=== PATIENT | female | born 1945 | race Caucasian/White ===

== ENCOUNTER 2016-08-28 05:41 | Inpatient (IN) | payer BC ==
[~2016-08-28] VITALS: Ht 152.4 cm; Wt 77.6 kg
[~2016-08-28 05:41] MED LIST: ATEN100T44 PO; HYG25 PO; LEVO50TA77 PO; LISI40TA4 PO; LOSA50TA3 PO; PRAV20TA PO; RIVA10TA PO
[2016-08-28] MEDS ORDERED: TRANEXAMIC ACID 650 MG TABLET PO ONE (06:00)
[2016-08-28] MEDS ORDERED: CELECOXIB 200 MG CAPSULE PO ONE (06:00)
[2016-08-28] MEDS ORDERED: GABAPENTIN 300 MG CAPSULE PO ONE (06:00)
[2016-08-28] MEDS ORDERED: ACETAMINOPHEN 500 MG TABLET PO ONE (06:00)
[2016-08-28] MEDS ORDERED: oxyCODONE HCL 10 MG TAB.ER.12H PO ONE ×2 (06:00→06:04)
[2016-08-28] MEDS ORDERED: CELECOXIB 200 MG CAPSULE ONE (06:04)
[2016-08-28] MEDS ORDERED: ACETAMINOPHEN 500 MG TABLET ONE (06:04)
[2016-08-28] MEDS ORDERED: GABAPENTIN 300 MG CAPSULE ONE (06:05)
[2016-08-28] MEDS ORDERED: TRANEXAMIC ACID 650 MG TABLET ONE (06:05)
[2016-08-28] MEDS ORDERED: ASPI-1063 PO (06:30)
[2016-08-28] MEDS ORDERED: METOPROLOL TARTRATE 5 MG/5 ML VIAL IVP ONE (06:56)
[2016-08-28] MEDS ORDERED: VANCOMYCIN HCL 1000 MG/VIAL IV ONE (06:56)
[2016-08-28] MEDS ORDERED: fentaNYL CITRATE/PF 100 MCG/2 ML AMP IVP ONE (06:56)
[2016-08-28] MEDS ORDERED: LR 1,000 ML IV.SOLN IV ONE (06:56)
[2016-08-28] MEDS ORDERED: METOCLOPRAMIDE HCL 10 MG/2 ML VIAL IVP ONE (06:56)
[2016-08-28] MEDS ORDERED: DEXAMETHASONE SOD PHOSPHATE 4 MG/ML VIAL IVP ONE (06:56)
[2016-08-28] MEDS ORDERED: TRANEXAMIC ACID 1,000 MG/10 ML VIAL IV ONE (06:56)
[2016-08-28] MEDS ORDERED: MIDAZOLAM HCL 5 MG/5 ML VIAL IVP ONE (06:56)
[2016-08-28] MEDS ORDERED: MORPHINE SULFATE 10MG/10ML PF AMP EP ONE (06:56)
[2016-08-28] MEDS ORDERED: ROPIVACAINE 0.2% (NAROPIN) PF SOLUTION 100 ML BOTTLE EP ONE (06:56)
[2016-08-28] MEDS ORDERED: NS 100 ML BAG IV ONE (06:56)
[2016-08-28] MEDS ORDERED: ROPIVACAINE HCL/PF 5 MG/ML 0.5% 30 ML VIAL INJ ONE (06:56)
[2016-08-28] MEDS ORDERED: KETOROLAC TROMETHAMINE 30 MG VIAL IVP ONE (06:56)
[2016-08-28] MEDS ORDERED: EPINEPHrine 1 MG/ML AMP IVP ONE (06:56)
[2016-08-28] MEDS ORDERED: SEVOFLURANE 15 MIN GAS INH ONE (06:56)
[2016-08-28] MEDS ORDERED: PROPOFOL 200MG/ 20ML VIAL (DIPRIVAN) IV ONE (06:56)
[2016-08-28] MEDS ORDERED: POLYMYXIN 500,000/BACIT.10,000 UNITS in NS IRR 1 L IR ONE (06:58)
[2016-08-28] MEDS ORDERED: KETOROLAC TROMETHAMINE 30 MG VIAL ONE (06:59)
[2016-08-28] MEDS ORDERED: CEFAZOLIN SOD 2 GM in D5W 50 ML IV ONE (07:00)
[2016-08-28] MEDS ORDERED: LR 1,000 ML IV ONE (08:24)
[2016-08-28] MEDS ORDERED: ONDANSETRON HCL 4 MG/2 ML VIAL IVP PRN ×3 (08:30→09:15)
[2016-08-28] MEDS ORDERED: DIPHENHYDRAMINE INJ 50 MG/ML VIAL IVP PRN (08:30)
[2016-08-28] MEDS ORDERED: KETOROLAC TROMETHAMINE 30 MG VIAL IM PRN (08:30)
[2016-08-28] MEDS ORDERED: ePHEDrine sulfate 50 MG/ML VIAL IVP PRN (08:30)
[2016-08-28] MEDS ORDERED: NALOXONE HCL 0.4 MG/ML AMP (NARCAN) IVP PRN (08:30)
[2016-08-28] MEDS ORDERED: NALBUPHINE HCL 10 MG/ML AMP IVP PRN (08:30)
[2016-08-28] MEDS ORDERED: fentaNYL CITRATE/PF 100 MCG/2 ML AMP IVP PRN (08:30)
[2016-08-28] MEDS ORDERED: PROMETHAZINE HCL 25 MG/ML AMP IVP PRN (09:15)
[2016-08-28] MEDS ORDERED: SENNOSIDES 8.6 MG TABLET PO PRN (09:15)
[2016-08-28] MEDS ORDERED: MORPHINE 4 MG/ML INJ. SYRINGE IVP PRN (09:15)
[2016-08-28] MEDS ORDERED: KETOROLAC TROMETHAMINE 15 MG VIAL IVP PRN (09:15)
[2016-08-28] MEDS ORDERED: DIPHENHYDRAMINE HCL 25 MG CAPSULE PO PRN (09:15)
[2016-08-28] MEDS ORDERED: RIVAROXABAN 10 MG TABLET PO SCH (10:00)
[2016-08-28 10:57] VITALS: BP_SYST 153
[2016-08-28 11:03] VITALS: BP_SYST 153
[2016-08-28 12:00] VITALS: BP_SYST 153
[2016-08-28 12:30] VITALS: BP_SYST 152
[2016-08-28] MEDS: CEFAZOLIN 1 GM IVPB PREMIX 50 ML IV SCH ×2 (15:53→21:58)
[2016-08-28] MEDS: D5LR 1,000 ML IV SCH ×2 (15:53→20:21)
[2016-08-28] MEDS: ACETAMINOPHEN 500 MG TABLET PO SCH ×2 (16:00→22:00)
[2016-08-28 16:33] VITALS: BP_SYST 140
[2016-08-28] MEDS: RIVAROXABAN 10 MG TABLET PO SCH (17:53)
[2016-08-28 20:16] VITALS: BP_SYST 166
[2016-08-28] MEDS: CELECOXIB 200 MG CAPSULE PO SCH (22:00)
[2016-08-28] MEDS: cloNIDine HCL 0.1 MG TABLET PO PRN (22:01)
[2016-08-28] MEDS: GABAPENTIN 300 MG CAPSULE PO SCH (22:01)
[2016-08-29] VITALS (7 sets, daily range): BP systolic 141–178
[2016-08-29] MEDS: oxyCODONE HCL 5 MG TABLET PO PRN ×3 (03:53→19:17)
[2016-08-29] MEDS: CEFAZOLIN 1 GM IVPB PREMIX 50 ML IV SCH (05:44)
[2016-08-29] MEDS: D5LR 1,000 ML IV SCH ×2 (05:44→14:56)
[2016-08-29 06:28] LABS: PLATELET COUNT (AUTO) 199 K/uL (130-430)
[2016-08-29] MEDS: LEVOTHYROXINE SODIUM 0.05 MG TABLET PO SCH (06:32)
[2016-08-29 06:40] LABS: BASOPHILS % (AUTO) 0.1 % (0.0-2.0); EOSINOPHILS # (AUTO) 0.2 K/uL (0.0-0.4); EOSINOPHILS % (AUTO) 0.8 % (0.0-4.0); HEMATOCRIT 35.7 % (36-48); HEMOGLOBIN 12.2 g/dL (12.0-16.0); LYMPHOCYTES # (AUTO) 1.7 K/uL (1.0-5.5); MEAN CORPUSCULAR HEMOGLOBIN 30 pg (27-31); MEAN CORPUSCULAR HGB CONC 34 % (32-36); MEAN CORPUSCULAR VOLUME 89 fL (79.0-98.0); MONOCYTES # (AUTO) 1.7 K/uL (0.0-1.0); NEUTROPHILS # (AUTO) 15.2 K/uL (1.8-7.7); NEUTROPHILS % (AUTO) 81.1 % (40.0-70.0); RED BLOOD CELL COUNT(AUTO) 4.03 MIL/uL (4.2-6.2); WHITE BLOOD COUNT (AUTO) 18.8 K/uL (4.8-10.8)
[2016-08-29 07:04] LABS: ANION GAP 7 (5-15); CALCIUM 8.5 mg/dL (8.4-11.0); CHLORIDE 104 mmol/L (98-107); CREATININE 0.84 mg/dL (0.55-1.30); GLUCOSE 124 mg/dL (70-99); POTASSIUM 3.4 mmol/L (3.5-5.1); SODIUM SERUM 137 mmol/L (136-145); UREA NITROGEN, BLOOD 9 mg/dL (8-21)
[2016-08-29] MEDS ORDERED: POTASSIUM CHLORIDE 20 MEQ/PKT PACKET PO ONE (08:00)
[2016-08-29] MEDS: CELECOXIB 200 MG CAPSULE PO SCH ×2 (08:32→20:06)
[2016-08-29] MEDS: LOSARTAN POTASSIUM 50 MG TABLET (COZAAR) PO SCH (08:33)
[2016-08-29] MEDS: CHLORTHALIDONE 25 MG TABLET (HYGROTON) PO SCH (08:35)
[2016-08-29] MEDS: ATENOLOL 50 MG TABLET (TENORMIN) PO SCH (08:36)
[2016-08-29] MEDS: LISINOPRIL 20 MG TABLET PO SCH (08:37)
[2016-08-29] MEDS: SIMVASTATIN 10 MG TABLET PO SCH (08:37)
[2016-08-29] MEDS: ACETAMINOPHEN 500 MG TABLET PO SCH ×3 (08:38→20:06)
[2016-08-29] MEDS: ROPIVACAINE 0.2% 550 ML INJ SCH (08:43)
[2016-08-29] MEDS ORDERED: PRAVASTATIN SODIUM 20 MG TABLET (PRAVACHOL) PO SCH (09:00)
[2016-08-29] MEDS ORDERED: IPRATROPIUM BROM 0.5 MG/2.5 ML VIAL.NEB (ATROVENT) INH PRN (15:45)
[2016-08-29] MEDS ORDERED: ALBUTEROL SULFATE 0.083% 2.5 MG/3 ML VIAL.NEB INH PRN (15:45)
[2016-08-29] MEDS: RIVAROXABAN 10 MG TABLET PO SCH (17:31)
[2016-08-29] MEDS: IPRATROPIUM BROM 0.5 MG/2.5 ML VIAL.NEB (ATROVENT) INH SCH ×2 (20:00→23:30)
[2016-08-29] MEDS: ALBUTEROL SULFATE 0.083% 2.5 MG/3 ML VIAL.NEB INH SCH ×2 (20:00→23:00)
[2016-08-29] MEDS: GABAPENTIN 300 MG CAPSULE PO SCH (20:06)
[2016-08-29] MEDS: cloNIDine HCL 0.1 MG TABLET PO PRN (20:13)
[2016-08-29] MEDS: HYDROmorphone 1 MG INJ. 1 MG/ML AMPUL IVP PRN (21:50)
[2016-08-30] VITALS (7 sets, daily range): BP systolic 130–146
[2016-08-30] MEDS: oxyCODONE HCL 5 MG TABLET PO PRN ×3 (00:43→08:24)
[2016-08-30] MEDS: D5LR 1,000 ML IV SCH ×3 (01:04→21:04)
[2016-08-30] MEDS: ALBUTEROL SULFATE 0.083% 2.5 MG/3 ML VIAL.NEB INH SCH ×6 (03:00→23:00)
[2016-08-30] MEDS: IPRATROPIUM BROM 0.5 MG/2.5 ML VIAL.NEB (ATROVENT) INH SCH ×6 (03:00→23:00)
[2016-08-30] MEDS: LEVOTHYROXINE SODIUM 0.05 MG TABLET PO SCH (06:21)
[2016-08-30 06:44] LABS: BASOPHILS % (AUTO) 0.3 % (0.0-2.0); EOSINOPHILS # (AUTO) 0.3 K/uL (0.0-0.4); EOSINOPHILS % (AUTO) 3.1 % (0.0-4.0); HEMATOCRIT 36.4 % (36-48); HEMOGLOBIN 11.7 g/dL (12.0-16.0); LYMPHOCYTES % (AUTO) 18.1 % (20.5-51.5); MEAN CORPUSCULAR HEMOGLOBIN 29 pg (27-31); MEAN CORPUSCULAR HGB CONC 32 % (32-36); MEAN CORPUSCULAR VOLUME 90 fL (79.0-98.0); MONOCYTES # (AUTO) 1.7 K/uL (0.0-1.0); MONOCYTES % (AUTO) 15.2 % (1.7-9.3); NEUTROPHILS % (AUTO) 63.3 % (40.0-70.0); PLATELET COUNT (AUTO) 180 K/uL (130-430); RED BLOOD CELL COUNT(AUTO) 4.02 MIL/uL (4.2-6.2); RED CELL DISTRIBUTION WIDTH 14.4 % (9.0-15.0)
[2016-08-30 07:06] LABS: ANION GAP 5 (5-15); CALCIUM 8.3 mg/dL (8.4-11.0); CHLORIDE 102 mmol/L (98-107); CREATININE 0.89 mg/dL (0.55-1.30); GLUCOSE 107 mg/dL (70-99); POTASSIUM 3.5 mmol/L (3.5-5.1); SODIUM SERUM 136 mmol/L (136-145); UREA NITROGEN, BLOOD 11 mg/dL (8-21)
[2016-08-30] MEDS: ACETAMINOPHEN 500 MG TABLET PO SCH ×3 (08:19→21:57)
[2016-08-30] MEDS: SIMVASTATIN 10 MG TABLET PO SCH (08:20)
[2016-08-30] MEDS: CELECOXIB 200 MG CAPSULE PO SCH ×2 (08:20→21:56)
[2016-08-30] MEDS: ATENOLOL 50 MG TABLET (TENORMIN) PO SCH (08:21)
[2016-08-30] MEDS: LOSARTAN POTASSIUM 50 MG TABLET (COZAAR) PO SCH (08:21)
[2016-08-30] MEDS: LISINOPRIL 20 MG TABLET PO SCH (08:22)
[2016-08-30] MEDS: CHLORTHALIDONE 25 MG TABLET (HYGROTON) PO SCH (08:24)
[2016-08-30] MEDS: ROPIVACAINE 0.2% 550 ML INJ SCH (08:25)
[2016-08-30] MEDS: HYDROmorphone 1 MG INJ. 1 MG/ML AMPUL IVP PRN ×2 (09:32→23:11)
[2016-08-30] MEDS: RIVAROXABAN 10 MG TABLET PO SCH (17:20)
[2016-08-30] MEDS: GABAPENTIN 300 MG CAPSULE PO SCH (22:00)
[2016-08-31 01:00] VITALS: BP_SYST 146
[2016-08-31] MEDS: IPRATROPIUM BROM 0.5 MG/2.5 ML VIAL.NEB (ATROVENT) INH SCH ×3 (02:06→11:39)
[2016-08-31] MEDS: ALBUTEROL SULFATE 0.083% 2.5 MG/3 ML VIAL.NEB INH SCH ×3 (02:06→11:39)
[2016-08-31 03:36] VITALS: BP_SYST 138
[2016-08-31] MEDS: D5LR 1,000 ML IV SCH (05:54)
[2016-08-31 06:29] LABS: ANION GAP 6 (5-15); CALCIUM 8.5 mg/dL (8.4-11.0); CHLORIDE 102 mmol/L (98-107); CREATININE 0.85 mg/dL (0.55-1.30); GLUCOSE 126 mg/dL (70-99); POTASSIUM 3.4 mmol/L (3.5-5.1); SODIUM SERUM 136 mmol/L (136-145); UREA NITROGEN, BLOOD 14 mg/dL (8-21)
[2016-08-31 06:40] LABS: BASOPHILS % (AUTO) 0.2 % (0.0-2.0); EOSINOPHILS # (AUTO) 0.7 K/uL (0.0-0.4); EOSINOPHILS % (AUTO) 5.7 % (0.0-4.0); HEMATOCRIT 32.7 % (36-48); HEMOGLOBIN 10.8 g/dL (12.0-16.0); LYMPHOCYTES # (AUTO) 1.5 K/uL (1.0-5.5); MEAN CORPUSCULAR HEMOGLOBIN 30 pg (27-31); MEAN CORPUSCULAR HGB CONC 33 % (32-36); MEAN CORPUSCULAR VOLUME 90 fL (79.0-98.0); MONOCYTES # (AUTO) 1.5 K/uL (0.0-1.0); MONOCYTES % (AUTO) 13.2 % (1.7-9.3); NEUTROPHILS % (AUTO) 67.9 % (40.0-70.0); PLATELET COUNT (AUTO) 184 K/uL (130-430); RED BLOOD CELL COUNT(AUTO) 3.63 MIL/uL (4.2-6.2); RED CELL DISTRIBUTION WIDTH 14.3 % (9.0-15.0); WHITE BLOOD COUNT (AUTO) 11.7 K/uL (4.8-10.8)
[2016-08-31] MEDS: LEVOTHYROXINE SODIUM 0.05 MG TABLET PO SCH (06:46)
[2016-08-31] MEDS: CELECOXIB 200 MG CAPSULE PO SCH (09:29)
[2016-08-31] MEDS: LOSARTAN POTASSIUM 50 MG TABLET (COZAAR) PO SCH (09:29)
[2016-08-31] MEDS: CHLORTHALIDONE 25 MG TABLET (HYGROTON) PO SCH (09:30)
[2016-08-31] MEDS: LISINOPRIL 20 MG TABLET PO SCH (09:30)
[2016-08-31] MEDS: SIMVASTATIN 10 MG TABLET PO SCH (09:30)
[2016-08-31] MEDS: ATENOLOL 50 MG TABLET (TENORMIN) PO SCH (09:31)
[2016-08-31] MEDS: ACETAMINOPHEN 500 MG TABLET PO SCH (09:31)
[2016-08-31] MEDS: oxyCODONE HCL 5 MG TABLET PO PRN (09:32)
[2016-08-31] MEDS ORDERED: POTASSIUM CHLORIDE 20 MEQ/PKT PACKET PO ONE (10:30)
[2016-08-31] MEDS ORDERED: RIVA10TA PO (10:59)
[2016-08-31] MEDS ORDERED: HYDR-3924 PO ×2 (10:59→11:00)
[2016-08-31 11:57] VITALS: BP_SYST 135
[2016-08-31 12:06] VITALS: BP_SYST 135
== END 2016-08-31 12:49 | disposition home health service (06) | DRG 470 ==
LOC: CANPREIN → SMU 05:41 → STU 05:41 → SMU 08-30 12:00
PROVIDERS: ADMIT Orthopaedic Surgery; ATTEND Orthopaedic Surgery
PROC: 0SRC0J9 Replacement of Right Knee Joint with Synthetic Substitute, Cemented, Open Approach (ICD-10-PCS; principal; 2016-08-28 07:30)
DX: M17.11 Unilateral primary osteoarthritis, right knee (principal); I10 Essential (primary) hypertension; E03.9 Hypothyroidism, unspecified; Z79.899 Other long term (current) drug therapy
CPT/HCPCS: 36415; 71010; 80048; 85025; 87081; 88305; 88311; 94010; 94640; 94760; 97039; 97110-GP; 97116-GP; 97530-GP; C1713; C1776; J0171; J0690; J1100; J1170; J1885; J2250; J2274; J2405; J2704; J2765; J2795; J3010; J3370; J3490; J7060; J7120; Q0163